=== PATIENT | male | born 1995 | race Caucasian/White ===

== ENCOUNTER 2025-07-20 18:46 | Emergency (ER) | payer OTHER ==
[2025-07-21] MEDS ORDERED: NAPR-1176 MT (02:14)
[2025-07-21] MEDS ORDERED: LIDO-53 TP (02:14)
== END 2025-07-20 19:37 | disposition left against medical advice (07) ==
LOC: ER 18:46
DX: M79.603 Pain in arm, unspecified (principal); Z53.21 Procedure and treatment not carried out due to patient leaving prior to being seen by health care provider

== ENCOUNTER 2025-07-21 00:07 | Emergency (ER) | payer MEDICAID, OTHER ==
[~2025-07-21] VITALS: Ht 167.6 cm; Wt 66.0 kg
[2025-07-21 00:39] VITALS: TEMP 36.9; O2SAT 100
[2025-07-21 02:03] VITALS: BP 113/70; PULSE 62; RESP 18
[2025-07-21] MEDS: LIDOCAINE 5% PATCH TOP SCH (02:03)
[2025-07-21] MEDS: KETOROLAC 15MG/ML VIAL IM ONE (02:03)
[2025-07-21] MEDS ORDERED: NAPR-1176 MT (02:14)
[2025-07-21] MEDS ORDERED: LIDO-53 TP (02:14)
== END 2025-07-21 02:38 | disposition home or self-care (01) ==
LOC: ER 00:07
DX: M25.511 Pain in right shoulder (principal); Z79.1 Long term (current) use of non-steroidal anti-inflammatories (NSAID)
CPT/HCPCS: 99283; 73030; 96372; J1885